=== PATIENT | female | born 1990 | race Two or more races ===

== ENCOUNTER 2023-02-08 20:49 | Emergency (ER) | payer OTHER ==
[~2023-02-08] VITALS: Ht 170.2 cm; Wt 108.9 kg
[2023-02-08] MEDS ORDERED: PROAIR RESPICL90 MCG (21:20)
[2023-02-08] MEDS ORDERED: ZOLOFT25 MG PO (21:20)
== END 2023-02-09 00:17 | disposition home or self-care (01) ==
LOC: ER 20:49
DX: J45.901 Unspecified asthma with (acute) exacerbation (principal)